=== PATIENT | male | born 1990 | race Caucasian/White ===

== ENCOUNTER 2017-03-25 11:40 | Emergency (ER) | payer OTHER ==
[2017-03-25 12:09] VITALS: BP 127/82
--- NOTE | 2017-03-25 12:46 | RADIOLOGY REPORT (SQ) ---
EXAM DESCRIPTION: CHEST PA/LAT COMPLETED DATE/TIME: 03/25/2017 12:35 pm REASON FOR STUDY: chest injury COMPARISON: 08/06/2015. EXAM PARAMETERS: NUMBER OF VIEWS: two views TECHNIQUE: Digital Frontal and Lateral radiographic views of the chest acquired. RADIATION DOSE: NA LIMITATIONS: none FINDINGS: LUNGS AND PLEURA: No opacities, masses or pneumothorax. No pleural effusion. MEDIASTINUM AND HILAR STRUCTURES: No masses or contour abnormalities. HEART AND VASCULAR STRUCTURES: Heart normal size. No evidence for failure. BONES: No acute findings. HARDWARE: Surgical sutures in the left apex. OTHER: No other significant finding. IMPRESSION: NO SIGNIFICANT RADIOGRAPHIC FINDING IN THE CHEST. TECHNICAL DOCUMENTATION: JOB ID: [id number] [employer]- All Rights Reserved
[2017-03-25] MEDS ORDERED: OXYCODONE-ACETAMINOPHEN 5-325 MG TABLET PO ONE (13:00)
--- NOTE | 2017-03-25 13:00 | ER Document Report ---
ED Respiratory Problem - General Chief Complaint: Chest Wall Injury Stated Complaint: INJURY TO CHEST,DIFFICULTY BREATHING Time Seen by Provider: 03/25/17 12:24 Notes: Patient is a 27-year-old male who presents emergency department complaining of right-sided chest pain. Patient states that 4 days ago he was helping his friend with 2 x 4's when his friend dropped them and they smacked in the right side of his chest. Patient states that he has had right-sided chest pain that has been persistent over the past 4 days worse with deep breath. Otherwise he denies any cough, shortness of breath, difficulty breathing. Patient states that he has been taking 800 mg of Motrin twice a day with minimal improvement in his symptoms. Past medical history significant for history of testicular cancer status post chemo rad, history of lung cancer requiring a left lobectomy in 2013. Patient is a current smoker, social alcohol use, daily marijuana use. TRAVEL OUTSIDE OF THE [place] IN LAST 30 DAYS: No COUNTRY TRAVELED TO/FROM: [facility] - Related Data Allergies/Adverse Reactions: cefaclor [From Ceclor] Allergy (Verified 03/25/17 12:09) diphenhydramine HCl [From Benadryl] Allergy (Verified 03/25/17 12:09) Anxiety prochlorperazine edisylate [From Compazine] Allergy (Verified 03/25/17 12:09) prochlorperazine maleate [From Compazine] Allergy (Verified 03/25/17 12:09) sulfamethoxazole [From Septra] Allergy (Verified 03/25/17 12:09) trimethoprim [From Septra] Allergy (Verified 03/25/17 12:09) Past Medical History - Social History Smoking Status: Current Every Day Smoker Family History: Reviewed & Not Pertinent Patient has suicidal ideation: No Patient has homicidal ideation: No Neurological Medical History: Reports: Hx Migraine Renal/ Medical History: Denies: Hx Peritoneal Dialysis Malignancy Medical History: Reports Hx Testicular Cancer Past Surgical History: Reports: Hx Genitourinary Surgery - Immunizations Immunizations up to date: Yes Hx Diphtheria, Pertussis, Tetanus Vaccination: Yes Review of Systems - Review of Systems Notes: REVIEW OF SYSTEMS: CONSTITUTIONAL : Denies fever, chills, or sweats. Denies recent illness. EENT: Denies eye, ear, throat, or mouth pain or symptoms. Denies nasal or sinus congestion or discharge. Denies throat, tongue, or mouth swelling or difficulty swallowing. CARDIOVASCULAR: Admit sot right side chest pain. Denies palpitations or racing or irregular heart beat. Denies ankle edema. RESPIRATORY: Denies cough, cold, or chest congestion. Denies shortness of breath, difficulty breathing, or wheezing. GASTROINTESTINAL: Denies abdominal pain or distention. Denies nausea, vomiting , or diarrhea. Denies blood in vomitus, stools, or per rectum. Denies black, tarry stools. Denies constipation. MUSCULOSKELETAL: Denies any muscle spasms, difficulty walking, extremity pain SKIN: Denies rash, lesions or sores. HEMATOLOGIC : Denies easy bruising or bleeding. LYMPHATIC: Denies swollen, enlarged glands. NEUROLOGICAL: Denies confusion or altered mental status. Denies passing out or loss of consciousness. Denies dizziness or lightheadedness. Denies headache. Denies weakness or paralysis or loss of use of either side. Denies problems with gait or speech. Denies sensory loss, numbness, or tingling. Denies seizures. PSYCHIATRIC: Denies anxiety or stress. Denies depression, suicidal ideation, or homicidal ideation. ALL OTHER SYSTEMS REVIEWED AND NEGATIVE. Dictation was performed using [employer] voice recognition software Physical Exam - Vital signs Vitals: Temp Pulse Resp BP Pulse Ox 98.7 F 66 16 127/82 H 100 03/25/17 12:02 03/25/17 12:02 03/25/17 12:02 03/25/17 12:02 03/25/17 12:02 - Notes Notes: PHYSICAL EXAM GENERAL: Alert, interacts well. NECK: Full range of motion. Supple. Trachea midline. LUNGS: Clear to auscultation bilaterally, no wheezes, rales, or rhonchi. No respiratory distress. Chest minimally tender on the right without any evidence of ecchymosis, crepitus, deformity. HEART: Regular rate and rhythm. No murmurs, gallops, or rubs. EXTREMITIES: Moves all 4 extremities spontaneously. No edema, radial and dorsalis pedis pulses 2/4 bilaterally. No cyanosis. NEUROLOGICAL: Alert and oriented x4. Normal speech. PSYCH: Normal affect, normal mood. SKIN: Warm, dry, normal turgor. No rashes or lesions noted. Course - Re-evaluation Re-evalutation: 03/25/17 12:58 Patient is a 27-year-old male who is hemodynamically stable, no acute distress and afebrile. Chest x-ray negative for fractures, pneumothorax. Patient is stable for discharge home - Vital Signs Vital signs: Temp Pulse Resp BP Pulse Ox 98.7 F 66 16 127/82 H 100 03/25/17 12:02 03/25/17 12:02 03/25/17 12:02 03/25/17 12:02 03/25/17 12:02 - Diagnostic Test Radiology reviewed: Image reviewed, Reports reviewed Discharge - Discharge Clinical Impression: Chest wall pain Condition: Good Disposition: HOME, SELF-CARE Instructions: Chest Wall Pain ([facility]) Prescriptions: Ibuprofen [Motrin 800 mg Tablet] 800 mg PO Q8H PRN #30 tab PRN Reason: Tramadol HCl 50 mg PO TID #15 tablet Forms: Return to Work
== END 2017-03-25 13:15 | disposition home or self-care (01) ==
LOC: ER 11:40
DX: R07.89 Other chest pain (principal); W20.8XXA Other cause of strike by thrown, projected or falling object, initial encounter; Y93.89 Activity, other specified; Z85.47 Personal history of malignant neoplasm of testis; Z92.21 Personal history of antineoplastic chemotherapy; Z92.3 Personal history of irradiation; Z85.118 Personal history of other malignant neoplasm of bronchus and lung; Z90.2 Acquired absence of lung [part of]; F17.200 Nicotine dependence, unspecified, uncomplicated; Z88.1 Allergy status to other antibiotic agents; Z88.8 Allergy status to other drugs, medicaments and biological substances
CPT/HCPCS: 71020; 99284